=== PATIENT | female | born 1960 | race Caucasian/White ===

== ENCOUNTER 2016-11-02 13:01 | Emergency (ER) | payer OTHER ==
[2016-11-02] MEDS ORDERED: IOPAMIDOL 370 (76%) 100 ML VIAL IV ONE (13:02)
[2016-11-02 14:44] LABS: ABSOLUTE NEUTROPHIL COUNT 5.9 K/mm3 (1.8-7.7); BASO # 0.1 K/mm3 (0.0-0.2); BASO % 0.6 % (0.2-1.0); EOS # 0.2 (0.0-0.5); EOS % 2.2 % (0.9-2.9); HEMATOCRIT 27.7 % (37.0-47.0); HEMOGLOBIN 7.9 gm/l (12.0-16.0); IMM NEUT% 0.5 % (0-1); LYMPH # 1.8 (1.0-4.8); LYMPH % 20.9 % (15-45); MEAN CELL VOLUME 71.9 fl (81.0-99.0); MEAN CORPUSCULAR HEMOGLOBIN 20.5 pg (27.0-31.0); MEAN CORPUSCULAR HGB CONC 28.5 g/dl (33.0-37.0); MONO # 0.7 (0.0-0.8); MONO % 7.6 % (4-12); NEUT % 68.2 % (43-75); PLATELET COUNT 380 K/mm3 (130-400); RED CELL DISTRIBUTION WIDTH 18.9 % (11.5-14.5)
[2016-11-02 14:52] LABS: VENOUS BLOOD GAS BASE EXCESS 6.2 mmol/L (-2.0-2.0); VENOUS BLOOD GAS HCO3 31.2 mmol/L (22.0-27.0)
[2016-11-02 15:03] LABS: ALB/GLOB RATIO 1.1 (>1.0); ALBUMIN 3.4 gm/dL (3.5-5.7); CALCIUM 8.6 mg/dL (8.6-10.3)
--- NOTE | 2016-11-02 15:39 | RAD ---
EXAMINATION:LOWER LEG RIGHT Two- Views CLINICAL INDICATION: Follow-up fracture. COMPARISON: None currently available. FINDINGS: There is comminuted fracture of the diaphysis of the proximal fibula. Periosteal response is noted. There is near anatomic alignment. There is medial compartment narrowing of the knee joint. The tibia appears intact. Distal fibula is unremarkable. No other soft tissue abnormality is identified. IMPRESSION: 1. Healing comminuted diaphyseal fracture of the proximal right fibula. Alignment is near anatomic. 2. Moderate to severe osteoarthritis of the right knee.
--- NOTE | 2016-11-02 15:41 | RAD ---
EXAMINATION:CHEST - 2 VIEWS CLINICAL INDICATION: Cough. Shortness of breath. COMPARISON: 04/01/2016. FINDINGS: The cardiomediastinal silhouette is within normal limits. There is no adenopathy identified. There is no pleural effusion. The lungs are clear. The osseous structures are unremarkable for age. Axial hiatal hernia is again noted. IMPRESSION: Negative PA and lateral views of the chest. No acute cardiopulmonary process is identified.
[2016-11-02] MEDS ORDERED: HALOPERIDOL LACTATE 5 MG/1 ML AMP ONE (15:48)
[2016-11-02] MEDS ORDERED: DIPHENHYDRAMINE HCL 50 MG/1 ML VIAL ONE (15:48)
--- NOTE | 2016-11-02 16:40 | CT ---
EXAMINATION: CT angiography of the thorax.CTA CHEST FOR PE INDICATION: Shortness of breath. COMPARISON: Prior CT angiogram of the chest dated 11/23/2015. TECHNIQUE: Helical scan mode CT of the Thorax after uneventful intravenous contrast administration of 80 ml of Isovue-370. Imaging device: [email or web address] multidetector CT scan. Helically acquired stacked images were reviewed in the axial, sagittal and coronal planes. Additional 3-D postprocessing was performed and reconstructed images were acquired at the 3D [employer] workstation and reviewed as well. FINDINGS: The bolus is of good quality for diagnosis of pulmonary embolism. There are no pulmonary arterial filling defects. No vascular malformations are identified. Thoracic aorta is well-opacified. Proximal pulmonary arteries exhibit no filling defects. The lung parenchyma: Apical emphysematous changes are noted. Extensive patchy basilar opacities noted on the prior study one year ago have cleared in the interim. Minimal residual patchy opacities are noted. There is no evidence of fibrosis. No worrisome mass or lobar consolidation is identified. Pleural effusion: None: Mediastinum: Mediastinal lymphadenopathy has mildly improved. Enlarged AP window lymph nodes now exhibits a short axis dimension 1 cm. This measured 1.4 cm on the prior exam. Subcarinal adenopathy and hilar adenopathy is improved as well. The thoracic inlet is unremarkable. Heart size is normal. There is no pericardial effusion. There is a large axial hiatal hernia. Osseus structures: No gross lytic or blastic lesions. Soft tissues: within normal limits Limited evaluation of the abdomen on this arterial phase injection reveals: no gross abnormalities. IMPRESSION: 1. Negative for pulmonary embolism. 2. Improvement in mediastinal adenopathy since the prior study. 3. Significant clearing of the bibasilar infiltrates seen on the prior study. There is some residual opacity however. 4. Large axial hiatal hernia. The findings were uploaded to the electronic medical record for review at approximately 4:40 PM 11/02/2016
== END 2016-11-02 17:43 | disposition home or self-care (01) ==
LOC: ED 13:01
DX: J40 Bronchitis, not specified as acute or chronic (principal); D50.9 Iron deficiency anemia, unspecified; J44.9 Chronic obstructive pulmonary disease, unspecified; I10 Essential (primary) hypertension; M79.7 Fibromyalgia; M19.90 Unspecified osteoarthritis, unspecified site; M06.9 Rheumatoid arthritis, unspecified; K21.9 Gastro-esophageal reflux disease without esophagitis; Z87.891 Personal history of nicotine dependence
CPT/HCPCS: 85379; 82803; 85025; 80053; 71020; 73590; 71275; 96375; 99284 ×2; 96374; 93005; J1200; J1630; Q9967

== ENCOUNTER 2016-11-20 20:45 | Emergency (ER) | payer OTHER ==
[2016-11-20 21:20] LABS: ABSOLUTE NEUTROPHIL COUNT 5.5 K/mm3 (1.8-7.7); BASO # 0.1 K/mm3 (0.0-0.2); BASO % 0.7 % (0.2-1.0); EOS # 0.5 (0.0-0.5); EOS % 4.4 % (0.9-2.9); HEMATOCRIT 33.2 % (37.0-47.0); HEMOGLOBIN 9.4 gm/l (12.0-16.0); IMM NEUT% 0.2 % (0-1); LYMPH # 3.8 (1.0-4.8); LYMPH % 35.7 % (15-45); MEAN CELL VOLUME 78.3 fl (81.0-99.0); MEAN CORPUSCULAR HEMOGLOBIN 22.2 pg (27.0-31.0); MEAN CORPUSCULAR HGB CONC 28.3 g/dl (33.0-37.0); MEAN PLATELET VOLUME 10.5 fl (7.4-10.4); MONO # 0.7 (0.0-0.8); PLATELET COUNT 445 K/mm3 (130-400)
[2016-11-20 21:22] LABS: URINE BILIRUBIN NEGATIVE (NEGATIVE); URINE BLOOD NEGATIVE (NEGATIVE); URINE GLUCOSE (UA) NEGATIVE (NEGATIVE); URINE LEUKOCYTE ESTERASE NEGATIVE (NEGATIVE); URINE NITRITE NEGATIVE (NEGATIVE); URINE PROTEIN NEGATIVE (NEGATIVE); URINE UROBILINOGEN NORMAL (0-1 mg/dl)
[2016-11-20] MEDS ORDERED: ALBUTEROL/IPRATROPIUM 2.5/0.5 MG 3 ML/EACH DOSE ONE (21:26)
[2016-11-20 21:27] LABS: URINE APPEARANCE CLEAR; URINE COLOR YELLOW
[2016-11-20] MEDS ORDERED: SODIUM CHLORIDE 0.9% 1,000 ML ONE (21:30)
[2016-11-20] MEDS ORDERED: ONDANSETRON 4 MG/2ML 2 ML VIAL ONE (21:30)
[2016-11-20 21:43] LABS: TROPONIN I < 0.01 ng/ml (0.0-0.06)
[2016-11-20 21:47] LABS: CKMB ISOENZYME 0.8 ng/ml (0.6-6.3)
[2016-11-20 23:39] LABS: ANISOCYTOSIS 1+; PLATELET ESTIMATE INCREASED (NORMAL)
--- NOTE | 2016-11-21 08:04 | RAD ---
Exam: Two-view chest COMPARISON: CT and chest radiograph 11/02/2016 INDICATION: Cough and wheezing. FINDINGS: PA and lateral views of the chest were obtained. Cardiac silhouette is within normal limits and stable. Lungs are normally inflated. Hiatal hernia is again noted. There is no focal airspace disease or pleural effusion. Bones of the chest wall within normal limits. Surgical clips are again noted within the right upper quadrant. IMPRESSION: No acute pulmonary process.
== END 2016-11-20 22:35 | disposition home or self-care (01) ==
LOC: ED 20:45
DX: R06.00 Dyspnea, unspecified (principal); R00.0 Tachycardia, unspecified; D64.9 Anemia, unspecified; I10 Essential (primary) hypertension; J44.9 Chronic obstructive pulmonary disease, unspecified; M79.7 Fibromyalgia; M19.90 Unspecified osteoarthritis, unspecified site; M06.9 Rheumatoid arthritis, unspecified; K21.9 Gastro-esophageal reflux disease without esophagitis; Z87.01 Personal history of pneumonia (recurrent); Z87.891 Personal history of nicotine dependence
CPT/HCPCS: 83605; 85025; 82553; 81003; 84484; 71020; 94640; 99284; 96374; 96361; 93005; 99283; J2405; J7030